=== PATIENT | male | born 1955 | race Caucasian/White ===

== ENCOUNTER 2023-03-16 07:40 | Day surgery (SDC) | payer OTHER, SELFPAY ==
[2023-03-16] VITALS (10 sets, daily range): BP systolic 99–135; BP diastolic 50–79; BMI 44.1
[2023-03-16 08:33] LABS: Glucose - Point of Care 161 mg/dl (70-99)
[2023-03-16] MEDS: PERIDEX 0.12% ORAL RINSE 15 ML PO (08:34)
[2023-03-16] MEDS: BACTROBAN NASAL 1 GRAM NASAL (08:34)
[2023-03-16 08:35] LABS: Hematocrit 35.2 % (39.0-52.0); Hemoglobin 11.8 g/dL (13.0-18.0); Mean Corp Hgb Conc. 33.5 g/dL (33.0-37.0); Mean Corpuscular Hgb 29.1 pg (27.0-31.0); Mean Corpuscular Volume 86.9 fL (80.0-94.0); Mean Platelet Volume 9.6 fL (7.4-10.4); Platelet Count 247 10^3/uL (130-400); Red Blood Cell Count 4.05 10^6/uL (4.70-6.10); Red Cell Dist. Width 14.3 % (11.5-14.5)
[2023-03-16] MEDS: NSS 500 IV (08:35)
[2023-03-16 08:43] LABS: PT 14.4 Sec (11.4-14.6)
[2023-03-16 08:44] LABS: APTT 33.8 Sec (23.4-35.0)
[2023-03-16 08:53] LABS: Blood Urea Nitrogen 57 mg/dl (9-20); Calcium 8.2 mg/dl (8.4-10.2); Carbon Dioxide 23 mmol/L (22-30); Chloride 97 mmol/L (98-107); Estimated Creatinine Clearance 34 ml/min; Glucose 170 mg/dl (70-99); Potassium 3.7 mmol/L (3.5-5.1); Sodium 136 mmol/L (135-145); eGFR 20.68
--- NOTE | 2023-03-16 09:03 | W.SUR.PREOP ---
Pre-Operative Surgical Note
-
I have examined this patient prior to the performance of the scheduled procedure.
The patient's condition is unchanged from the time of the current History and
Physical and the patient is able to undergo the scheduled procedure.
--- NOTE | 2023-03-16 10:49 | OR.RPT ---
Operative Report
Operative Report
PROCEDURE DATE: 03/16/2023
Preoperative diagnosis: End-stage renal disease on hemodialysis
Postoperative diagnosis: Same
Procedure: Left upper extremity brachiocephalic arteriovenous fistula creation
Surgeon: Peter
Hospital Insurance Representative: Ramiro Meier PA-C
Complications: None
Anesthesia: General
Indications for procedure:
End-stage renal disease on hemodialysis. Referred for permanent access. Discussed with patient risk/benefits/alternatives of fistula or graft. He understood all wish to proceed.
Description of procedure:
Patient was identified brought to the operating room placed on the table in supine position. After the administration of anesthesia, I used an ultrasound probe to ultrasound vein map the veins myself, and felt that the upper arm cephalic vein was
reasonable. It was somewhat reasonable in the forearm, but the artery was very small and had eccentric calcified plaque, and therefore I favor not using the forearm vein. After the adequate administration of anesthesia and perioperative
antibiotics he was prepped and draped in the standard surgical fashion. A standard preoperative timeout was undertaken and everybody was in agreement the plan. A transverse incision was made in the proximal volar aspect of the forearm just distal
to the antecubital fossa. This was carried through skin subcutaneous tissue. The antecubital extension of the cephalic vein was identified and carefully dissected away from surrounding structures and great care to avoid any injury to structures.
The medial/antecubital branch was ligated between silk ties and divided. Any other branches were ligated between silk ties and then divided. As such I was able to mobilize a suitable length of cephalic vein. Once I had done this I then deepened
my dissection in the medial aspect of the incision site through the fascial layer. The brachial artery was carefully identified and carefully dissected away from surrounding structures take great care to avoid injury to structures. I passed a
vessel loop around approximately. Distally I identified the brachial bifurcation and both radial and ulnar branches were controlled with Vesseloops after careful circumferential dissection. Next I gave the patient 3000 units of intravenous
heparin. I then ligated the cephalic vein distally in my field with a silk tie and a clip. I then transected it. I distended under heparinized saline. It distended very well. I marked the anterior surface under distention to avoid any kinking
or twisting. The vein was suitable size but just to be sure I ran a 2.5 mm and then 3 mm dilator through which both passed without any difficulty whatsoever. Next I tightened my double looped Vesseloops on the artery proximallyand distally. I
then made an arteriotomy with 11 blade extended using a Ascencio scissor, extending it onto the proximal radial artery. I spatulated the cephalic vein and sewed an end to side anastomosis using a running 6-0 Prolene suture. Prior to completing and
tying down my suture line I backbled and forebled the [place] artery. Next I released my bulldog clamp on the vein and then released my Vesseloops on the inflow artery. There was an excellent thrill in the fistula. Next i released my outflow
vessel loops. There was a palpable pulse at the wrist in the radial artery. Doppler confirmed excellent flow in all vessels. At this point I was very satisfied. I irrigated. I achieved and confirmed full hemostasis. I then closed in layers
using 3-0 Vicryl deep dermal layer followed by 4-0 Monocryl subcuticular stitch. Dermabond was applied. The patient tolerated the procedure well.
[2023-03-16 11:47] LABS: Glucose - Point of Care 171 mg/dl (70-99)
[2023-03-16] MEDS: DILAUDID 0.5 MG IV (11:53)
== END 2023-03-16 13:51 | disposition home or self-care (01) ==
LOC: CATH 07:40
PROVIDERS: ATTENDING PHYSICIAN Surgery Vascular Surgery; FAMILY PHYSICIAN Internal Medicine
DX: I13.2 Hypertensive heart and chronic kidney disease with heart failure and with stage 5 chronic kidney disease, or end stage renal disease (principal); N18.6 End stage renal disease; Z99.2 Dependence on renal dialysis; E11.22 Type 2 diabetes mellitus with diabetic chronic kidney disease; I50.9 Heart failure, unspecified; Z79.4 Long term (current) use of insulin; Z79.01 Long term (current) use of anticoagulants; Z79.82 Long term (current) use of aspirin; E78.5 Hyperlipidemia, unspecified; I48.91 Unspecified atrial fibrillation
CPT/HCPCS: 36821; 80048; 82962; 85027; 85610; 85730; 86850; 86900; 86901; 93005

== ENCOUNTER → 2023-05-02 08:29 | Outpatient (REF) | payer OTHER, SELFPAY | LOC: RAD 08:29 | PROVIDERS: ATTENDING PHYSICIAN Physician Assistant; FAMILY PHYSICIAN Internal Medicine | DX: I77.0 Arteriovenous fistula, acquired (principal) | CPT/HCPCS: 93990 ==

== ENCOUNTER 2023-05-13 09:36 | Day surgery (SDC) | payer OTHER, SELFPAY ==
[2023-05-13] VITALS (11 sets, daily range): BP systolic 85–130; BP diastolic 41–106
[2023-05-13] MEDS: BACTROBAN NASAL 1 GRAM NASAL (11:10)
[2023-05-13] MEDS: PERIDEX 0.12% ORAL RINSE 15 ML PO (11:28)
[2023-05-13 12:13] LABS: Glucose - Point of Care 151 mg/dl (70-99)
[2023-05-13 12:40] LABS: Hematocrit 32.5 % (39.0-52.0); Hemoglobin 11.3 g/dL (13.0-18.0); Mean Corp Hgb Conc. 34.8 g/dL (33.0-37.0); Mean Corpuscular Hgb 29.6 pg (27.0-31.0); Mean Corpuscular Volume 85.1 fL (80.0-94.0); Mean Platelet Volume 9.1 fL (7.4-10.4); Platelet Count 213 10^3/uL (130-400); Red Blood Cell Count 3.82 10^6/uL (4.70-6.10); Red Cell Dist. Width 14.9 % (11.5-14.5); White Blood Cell Count 6.8 10^3/uL (4.8-10.8)
[2023-05-13 12:50] LABS: Blood Urea Nitrogen 47 mg/dl (9-20); Calcium 8.2 mg/dl (8.4-10.2); Carbon Dioxide 23 mmol/L (22-30); Chloride 96 mmol/L (98-107); Estimated Creatinine Clearance 35 ml/min; Glucose 160 mg/dl (70-99); Potassium 4.4 mmol/L (3.5-5.1); Sodium 130 mmol/L (135-145); eGFR 22.35
[2023-05-13 12:58] LABS: APTT 27.4 Sec (23.4-35.0); INR 1.06; PT 13.6 Sec (11.4-14.6)
--- NOTE | 2023-05-13 15:18 | W.IMMPOSTOP ---
Surgical Immed Post Op Note
-
Primary Surgeon: Dannie Lane III, MD
Assisting Surgeon: Daniel Mcgraw MD
Pre-op Diagnosis: AV Fistula Requiring Superficilization
Post-op Diagnosis: AV Fistula Requiring Superficilization
Procedure Performed: Brachio-cephalic Fistula Superficilization (LEFT)
Anesthesia Type: General
Specimen / Cultures: NA
Estimated Blood Loss: 20cc
Complications: NA
Operative Findings:
A generous incision was made along the proximal upper left extremity. Skin and subcutaneous tissue were dissected. The vein was visualized and careful circumfrential sharp dissection was used to free the vein. The overlying subcutaneous tissue was
then re-approximated under the vein. Skin flaps were created using electrocautery. The skin was re-approximated with interrupted 3-0 vicryl and closed with a running 4-0 monofilament. Skin glue was applied overtop. Soft thrill appreciated following
closure.
--- NOTE | 2023-05-13 15:46 | OR.RPT ---
Operative Report
Operative Report
Date of Operation: 05/13/2023
Pre Op Diagnosis: Status post creation of left upper arm brachiocephalic arteriovenous fistula with difficulty with needle cannulation
Post Op Diagnosis: Status post creation of left upper arm brachiocephalic arteriovenous fistula with difficulty with needle cannulation
Procedure: Revision of left upper extremity arteriovenous fistula with superficialization of the cephalic vein.
Surgeon: Dannie Lane III, MD
Manager Php: Daniel Mcgraw MD PGY-1
Anesthesia: General
Complications: None
Estimated Blood Loss: Less than 20 cc
History and Indications for Procedure: 67-year-old male with left upper extremity brachiocephalic AV fistula. Although the fistula was patent the nurses had difficulty with needle cannulation likely due to the depth of the vein.
Procedure in Detail: Adria Garza was correctly identified and placed supine on the operating table. The location of the cephalic vein from the antecubital fossa to the upper arm was marked at the skin level with ultrasound guidance. After
adequate induction of anesthesia his left arm was prepped and draped in the usual sterile fashion. He received preoperative antibiotics. A timeout procedure was performed with the nursing and anesthesia staff confirming the patient's identity as
well as the nature and laterality of the procedure.
A 15 cm incision was made from the antecubital fossa proximally over the cephalic vein carole. Electrocautery and sharp dissection were used to expose the cephalic vein. The cephalic vein was sharply dissected circumferentially. The vein was of
adequate diameter for dialysis and had a robust thrill throughout the entire length. All branches were ligated and divided between silk ties and clips. The subcutaneous tissue was then irrigated after the vein had been fully mobilized. Hemostasis
was achieved with electrocautery. The subcutaneous tissue was reapproximated beneath the vein using interrupted 3-0 Vicryl sutures to elevate the vein into a more superficial location. Skin flaps were then created using gentle electrocautery. The
skin was reapproximated over top of the superficial lysed cephalic vein using interrupted 3-0 Vicryl suture in a deep dermal layer followed by a running 4-0 Monocryl. Skin glue was applied. There was an easily palpable thrill in the vein
immediately under the incision in the left upper arm. The patient tolerated the procedure well was taken to the recovery room in good condition.
Attestation: I was present and responsible for the entire procedure
Signed: Dannie Lane III, MD
[facility]
[phone] (cell)
[2023-05-13 15:54] LABS: Glucose - Point of Care 157 mg/dl (70-99)
--- NOTE | 2023-05-13 15:58 | SUR.PHASEI ---
Report to QUANG Gorman at 1550. IV team at bedside . Ara Noble RN BSN.
== END 2023-05-13 17:20 | disposition home or self-care (01) ==
LOC: CATH 09:36
PROVIDERS: ATTENDING PHYSICIAN Surgery Vascular Surgery; FAMILY PHYSICIAN Internal Medicine; OTHER PHYSICIAN Internal Medicine Cardiovascular Disease
DX: T82.898A Other specified complication of vascular prosthetic devices, implants and grafts, initial encounter (principal); Y83.2 Surgical operation with anastomosis, bypass or graft as the cause of abnormal reaction of the patient, or of later complication, without mention of misadventure at the time of the procedure; I13.2 Hypertensive heart and chronic kidney disease with heart failure and with stage 5 chronic kidney disease, or end stage renal disease; E11.22 Type 2 diabetes mellitus with diabetic chronic kidney disease; N18.6 End stage renal disease; I50.9 Heart failure, unspecified; Z99.2 Dependence on renal dialysis; Z79.4 Long term (current) use of insulin; Z79.82 Long term (current) use of aspirin; Z79.01 Long term (current) use of anticoagulants
CPT/HCPCS: 36832; 80048; 82962; 85027; 85610; 85730; 86850; 86900; 86901

== ENCOUNTER → 2023-07-11 07:59 | Outpatient (REF) | payer OTHER, SELFPAY ==
[2023-07-11 08:13] VITALS: BP 154/80; BP_SYST 98
== END ==
LOC: RADI 07:59
PROVIDERS: ATTENDING PHYSICIAN Internal Medicine Nephrology; FAMILY PHYSICIAN Internal Medicine
DX: Z49.01 Encounter for fitting and adjustment of extracorporeal dialysis catheter (principal); N18.6 End stage renal disease
CPT/HCPCS: 36589